=== PATIENT | female | born 1960 | race Caucasian/White ===

== ENCOUNTER → 2020-04-20 | Outpatient (CLI) | payer BC ==
--- NOTE | 2020-04-20 17:01 | RAD ---
EXAM: Left knee sonogram. HISTORY: Popliteal pain. TECHNIQUE: Sonographic imaging of the left popliteal fossa was performed. COMPARISON: None. FINDINGS: There is no evidence of a popliteal cyst. No mass is seen. There is no venous thrombosis. The popliteal artery is widely patent. IMPRESSION: Unremarkable sonographic imaging of the left popliteal fossa at the site of reported palpable concern. Cross-sectional imaging may be indicated if this concern for a sonographically occult lesion. Electronically signed by: Tosin Wynn MD (04/20/2020 4:58 PM) [id number]
== END | disposition home or self-care (01) ==
LOC: US 16:32
PROVIDERS: ATTEND Specialist
DX: M25.562 Pain in left knee (principal)
CPT/HCPCS: 76881